=== PATIENT | female | born 1990 | race Caucasian/White ===

== ENCOUNTER 2024-04-29 07:38 | Observation (INO) ==
[~2024-04-29 07:38] MED LIST: Metoclopramide 5 MG/ML VIAL (10 mg) IV PRN; NS 0.45% 1000 ml BAG 1,000 ML IV SCH; Naloxone 0.4 mg VIAL 0.4 mg/ml 1 ml VIAL IV PRN; Ondansetron 4 mg VIAL 2 MG/ML 2 ml VIAL IV PRN
[2024-04-29] MEDS ORDERED: Chlorhexidine MOUTHWASH 0.12% 15 ML UDC ONE (08:10)
[2024-04-29] MEDS ORDERED: ceFAZolin 2 GM PREMIX 2 GM/50 ML BAG ONE (08:21)
[2024-04-29] MEDS ORDERED: Midazolam 2 mg/2 ml VIAL 1 mg/ml 2 ml VIAL (2 mg) ONE (08:21)
[2024-04-29] MEDS ORDERED: fentaNYL 100 mcg/2 ml 50 MCG/ML VIAL ONE ×3 (08:21→13:40)
[2024-04-29 08:25] LABS: Rapid COVID-19 Molecular Undetected (Undetected)
[2024-04-29] MEDS ORDERED: Lidocaine 2% PF 5 ML VIAL ONE (08:26)
[2024-04-29] MEDS ORDERED: Ondansetron 4 mg VIAL 2 MG/ML 2 ml VIAL ONE (08:26)
[2024-04-29] MEDS ORDERED: Dexamethasone IV 4 MG/ML VIAL 1 ml VIAL ONE (08:26)
[2024-04-29] MEDS ORDERED: Propofol 10 MG/ML 20 ML BTL ONE ×2 (08:26→11:01)
[2024-04-29] MEDS ORDERED: Rocuronium 50 mg VIAL 10 mg/ml 5 ml VIAL (50 mg) ONE ×2 (08:31→11:51)
[2024-04-29] MEDS: Buffered Lidocaine 1% SYRIN 1 ml INTRADERM ONE (08:42)
[2024-04-29] MEDS: Lactated Ringers 1000 ml BAG 1,000 ML IV SCH ×2 (08:42→16:23)
[2024-04-29] MEDS ORDERED: Gelfoam Sponge SIZE 100 SPONGE ONE (10:19)
[2024-04-29] MEDS ORDERED: Thrombin 5,000 UNITS 1 APPLIC KIT - topical use - TOPICAL ONE (10:19)
[2024-04-29] MEDS ORDERED: Lidocaine 1% w EPI 1:100,000 MDV 20 ML VIAL ONE (10:19)
[2024-04-29] MEDS ORDERED: ceFAZolin VIAL VIAL ONE (10:19)
[2024-04-29] MEDS ORDERED: HYDROmorphone 0.5 MG/0.5 ML SYRINGE ONE ×3 (11:03→12:24)
[2024-04-29] MEDS ORDERED: Thrombin 5,000 UNITS(BOVINE) for Ultrasound Guided Pseudoaneursym ONE (12:21)
[2024-04-29] MEDS ORDERED: Dextran 70/Hypromellose Tears Eye Drops 15 ml BTL (for Artificials Tears) BOTH EYES PRN (13:32)
[2024-04-29] MEDS ORDERED: Ondansetron 4 mg VIAL 2 MG/ML 2 ml VIAL IV PRN (13:32)
[2024-04-29] MEDS ORDERED: Magnesium Hydroxide LIQ 30 ML UDC PO PRN (13:32)
[2024-04-29] MEDS ORDERED: Senna TAB 8.6 mg TAB PO PRN (13:32)
[2024-04-29] MEDS ORDERED: Calcium Carb (TUMS) 500 mg CHEW TAB PO PRN (13:32)
[2024-04-29] MEDS ORDERED: Benzocaine/Menthol LOZ MT PRN (13:32)
[2024-04-29] MEDS ORDERED: Phenol 1.4% Throat Spray BTL MT PRN (13:32)
[2024-04-29] MEDS ORDERED: Acetaminophen IV 1 GM/100ML 1,000 MG/100 ML BAG IV ONE (13:40)
[2024-04-29] MEDS: fentaNYL 100 mcg/2 ml 50 MCG/ML VIAL IV PRN (13:45)
[2024-04-29] MEDS: Acetaminophen IV 1 GM/100ML 1,000 MG/100 ML BAG IV ONE (14:24)
[2024-04-29] MEDS: Scopolamine 1 mg/72hr PATCH TRANSDERM ONE (19:03)
[2024-04-29] MEDS: Morphine 2 MG/ML SYRINGE IV PRN (21:40)
== END 2024-04-30 10:35 | disposition home or self-care (01) ==
LOC: SSU 07:38 → OR 07:38
PROVIDERS: ADMIT Neurological Surgery; ATTEND Neurological Surgery